=== PATIENT | male | born 1995 | race Caucasian/White ===

== ENCOUNTER 2016-11-22 20:22 | Emergency (ER) | payer MEDICAID ==
[~2016-11-22 20:22] MED LIST: FLEXERIL PO; HYDROCODON-ACE1 EACH PO; IBUPROFEN600 MG PO; ZITHROMAX1 G/PKT PO
[2016-11-22 21:40] LABS: BASOPHIL% 0.3 % (0-2.5); EOSINOPHIL% 0.1 % (0.0-7.0); HEMATOCRIT 42.1 % (38.0-50.0); HEMOGLOBIN 14.2 gm/dL (13.0-16.0); LYMPHOCYTE# 1.4 X10e3 (1.0-3.5); LYMPHOCYTE% 10.5 % (17.0-45.0); MEAN CELL VOLUME 85.2 FL (83-96); MEAN CORPUSCULAR HEMOGLOBIN 28.8 PG (28-34); MEAN CORPUSCULAR HGB CONC 33.9 g/dL (30-36); MEAN PLATELET VOLUME 8.5 FL (6.5-11.5); MONOCYTE# 0.9 X10e3 (0-1.0); MONOCYTE% 6.5 % (3.0-12.0); NEUTROPHIL# 11.1 X10e3 (1.5-7.1); NEUTROPHIL% 82.6 % (40-75); PLATELET COUNT 234 X10e3 (140-420); RED BLOOD COUNT 4.94 X10e (3.90-5.60); WHITE BLOOD COUNT 13.5 X10e3 (4.0-10.5)
[2016-11-22 21:42] LABS: DIFF IND NO
[2016-11-22 21:59] LABS: ALBUMIN SERUM 4.7 g/dL (3.5-5.0); BILIRUBIN, DIRECT 0.2 mg/dL (0.0-0.2); BILIRUBIN,INDIRECT 1.3 mg/dL (0.0-0.9); BILIRUBIN,TOTAL 1.5 mg/dL (0.2-2.0); BUN/CREATININE RATIO 24.44; CALCIUM SERUM 9.5 mg/dL (8.4-10.2); CREATININE SERUM 0.9 mg/dL (0.6-1.4); GLOM FILT RATE Estimated 121.7 mL/min (>60); POTASSIUM 3.7 mmol/L (3.5-5.1); PROTEIN TOTAL SERUM 8.2 g/dL (6.0-8.3)
== END 2016-11-22 22:50 | disposition home or self-care (01) ==
LOC: SED 20:22
PROVIDERS: Emergency Medicine
DX: L03.114 Cellulitis of left upper limb (principal); F17.200 Nicotine dependence, unspecified, uncomplicated
CPT/HCPCS: 36415; 80048; 80076; 83605; 85025; 87040; 87070; 87077; 87186; 87205; 96365; 99284; J3370

== ENCOUNTER 2016-11-24 11:07 | Emergency (ER) | payer MEDICAID ==
[2016-11-24] MEDS ORDERED: BACTRIM 400-801 EACH (11:14)
== END 2016-11-24 12:10 | disposition home or self-care (01) ==
LOC: SED 11:07
DX: L02.414 Cutaneous abscess of left upper limb (principal); L03.114 Cellulitis of left upper limb; F90.9 Attention-deficit hyperactivity disorder, unspecified type; F17.210 Nicotine dependence, cigarettes, uncomplicated
CPT/HCPCS: 96372; 99283